=== PATIENT | male | born 2000 | race Caucasian/White ===

== ENCOUNTER 2024-03-23 13:17 | Outpatient (CLI) | payer OTHER, SELFPAY | END 2024-03-23 13:18 | disposition home or self-care (01) | PROVIDERS: PCP Physician Assistant Medical; Visit Provider Physician Assistant Medical | DX: G43.909 Migraine, unspecified, not intractable, without status migrainosus (principal); Z13.228 Encounter for screening for other metabolic disorders; Z13.29 Encounter for screening for other suspected endocrine disorder; Z13.0 Encounter for screening for diseases of the blood and blood-forming organs and certain disorders involving the immune mechanism | CPT/HCPCS: 80053; 82306; 82728; 84443 ==